=== PATIENT | female | born 1970 | race Two or more races ===

== ENCOUNTER → 2021-05-16 | Emergency (ER) | payer OTHER ==
[~2021-05-16] VITALS: Ht 165.1 cm; Wt 72.6 kg
[~2021-05-16] MED LIST: OMEPRAZOLE MAGN20 MG PO; SINGULAIR 10MG10 MG PO; SYNTHROID50 MCG PO; VISTARIL50 MG PO; ZYRTEC5 M1 PO
== END | disposition home or self-care (01) ==
LOC: ER 12:54
DX: F41.0 Panic disorder [episodic paroxysmal anxiety] (principal); E03.9 Hypothyroidism, unspecified